=== PATIENT | female | born 1950 | race Two or more races ===

== ENCOUNTER 2023-08-03 13:19 | Inpatient (IN) | payer BC, MEDICAID ==
[~2023-08-03] VITALS: Ht 157.5 cm; Wt 73.0 kg
[2023-08-03 14:39] LABS: Basophils # (auto) 0 10 ^3/uL (0-0.2); Basophils % (auto) 0.3 % (0.0-2.0); Eosinophils # (auto) 0 10 ^3/uL (0-0.8); Eosinophils % (auto) 0.2 % (0.0-7.0); Hematocrit 44.5 % (36.0-46.0); Hemoglobin 14.6 g/dL (12.2-16.2); Lymphocytes # (auto) 2.6 10 ^3/uL (0.4-5.4); Lymphocytes % (auto) 32.7 % (10.0-50.0); Mean Corpuscular Hemoglobin 27.7 pg (28.0-32.0); Mean Corpuscular Hgb Conc. 32.9 g/dL (32.0-36.0); Mean Corpuscular Volume 84.1 fL (80.0-100.0); Monocytes # (auto) 0.7 10 ^3/uL (0-1.3); Monocytes % (auto) 8.6 % (0.0-12.0); Neutrophils # (auto) 4.6 10 ^3/uL (1.6-8.6); Neutrophils % (auto) 58.2 % (37.0-80.0); Red Blood Cells 5.29 10^6/uL (4.0-5.20); Red Cell Distribution Width 15.2 % (11.8-14.3); White Blood Cell 7.9 10^3/uL (4.4-10.8)
[2023-08-03 14:51] LABS: Chloride 107 mmol/L (98-107); Potassium 3.5 mmol/L (3.5-5.1); Sodium 139 mmol/L (136-145)
[2023-08-03 14:52] LABS: Anion Gap 5 (5-15); Calcium 9.4 mg/dL (8.5-10.1); Carbon Dioxide 27 mmol/L (20-30)
[2023-08-03 14:57] LABS: Blood Urea Nitrogen 10 mg/dL (9-23); Glucose 144 mg/dL (74-106)
[2023-08-03 17:34] LABS: Magnesium 1.6 mg/dL (1.6-2.6)
[2023-08-03] MEDS: METOPROLOL SUCCINATE XL 50 MG TAB PO ONE (18:31)
[2023-08-03] MEDS ORDERED: ONDANSETRON HCL 4 MG/2 ML VIAL IV PRN (21:15)
[2023-08-03] MEDS: ATORVASTATIN 20 MG TAB PO SCH (22:00)
[2023-08-03] MEDS ORDERED: MORPHINE SULFATE INJ 2 MG/ml SYRG IV PRN (23:00)
[2023-08-03 23:15] VITALS: PULSE 82; RESP 18; O2SAT 96
[2023-08-03] MEDS: hydrALAZINE HCL 20 MG/ML VL IV PRN (23:45)
[2023-08-04] VITALS (9 sets, daily range): BP systolic 118–165; BP diastolic 54–91; PULSE 67–83; RESP 16–19; TEMP 98–98.7; O2SAT 95–98
[2023-08-04] MEDS: NITROGLYCERIN 0.4 MG SL TAB SL PRN (00:26)
[2023-08-04] MEDS ORDERED: CLOP75TA28 PO (02:09)
[2023-08-04] MEDS ORDERED: OXYB5SOL PO (02:19)
[2023-08-04] MEDS ORDERED: NITR0.4D5 TD (02:19)
[2023-08-04 06:09] LABS: Chloride 107 mmol/L (98-107); Potassium 3.4 mmol/L (3.5-5.1); Sodium 143 mmol/L (136-145)
[2023-08-04 06:10] LABS: Anion Gap 12 (5-15); Carbon Dioxide 24 mmol/L (20-30)
[2023-08-04 06:11] LABS: Calcium 9.2 mg/dL (8.7-10.4)
[2023-08-04 06:15] LABS: Blood Urea Nitrogen 6 mg/dL (9-23); Glucose 111 mg/dL (74-106)
[2023-08-04] MEDS: CLOPIDOGREL BISULFATE 75 MG TAB PO SCH (08:42)
[2023-08-04] MEDS: ASPirin 81 mg TAB PO SCH (08:42)
[2023-08-04] MEDS: ENOXAPARIN SOD 40 MG/0.4 ML SYRINGE SC SCH (08:42)
[2023-08-04] MEDS: METOPROLOL SUCCINATE XL 50 MG TAB PO SCH (08:43)
[2023-08-04] MEDS ORDERED: OXYB5TAB14 PO (11:38)
[2023-08-04] MEDS ORDERED: CLON0.1D7 TD (11:38)
[2023-08-04] MEDS ORDERED: LOSA-533 PO (11:38)
[2023-08-04] MEDS ORDERED: ROSU20TA14 PO (11:38)
[2023-08-04] MEDS ORDERED: DILT60TA PO (11:38)
[2023-08-04 19:59] LABS: Urine Amorphous Crystal FEW /hpf (None Seen); Urine Bacteria FEW /hpf (None Seen); Urine Blood Negative /uL (Negative); Urine Clarity Turbid (Clear); Urine Color Colorless (Yellow); Urine Mucus FEW (None Seen); Urine Protein, UAD Negative (Negative); Urine Specific Gravity 1.015 (1.001-1.035); Urine Urobilinogen Normal (Negative); Urine WBC 123 /hpf (0 - 5); Urine WBC Clumps PRESENT /hpf (None Seen)
[2023-08-04] MEDS: cloNIDine HCL 0.1 MG TAB PO PRN (23:08)
[2023-08-05 01:08] VITALS: BP 128/75; PULSE 78; RESP 18; TEMP 98.2; O2SAT 98
[2023-08-05 05:00] VITALS: BP 133/81; PULSE 67; RESP 18; TEMP 98.1; O2SAT 97
[2023-08-05 08:00] VITALS: PULSE 62
[2023-08-05] MEDS: ACETAMINOPHEN 325 MG TAB PO PRN (09:42)
[2023-08-05] MEDS ORDERED: CIPR-173 PO (11:51)
== END 2023-08-05 14:05 | disposition home or self-care (01) | DRG 554 ==
LOC: ER 13:19 → EDBD 13:19 → TELE 22:55 → TELE-WESTW 08-04 00:51
PROVIDERS: ADMIT Nurse Practitioner; ATTEND Family Medicine
DX: M19.011 Primary osteoarthritis, right shoulder (principal); N39.0 Urinary tract infection, site not specified; I16.0 Hypertensive urgency; I25.10 Atherosclerotic heart disease of native coronary artery without angina pectoris; E66.9 Obesity, unspecified; I10 Essential (primary) hypertension; I95.9 Hypotension, unspecified; E78.00 Pure hypercholesterolemia, unspecified; Z95.1 Presence of aortocoronary bypass graft; Z95.5 Presence of coronary angioplasty implant and graft; Z90.49 Acquired absence of other specified parts of digestive tract; Z90.710 Acquired absence of both cervix and uterus; Z68.29 Body mass index [BMI] 29.0-29.9, adult
CPT/HCPCS: 36415; 71045; 73030; 73070; 73120; 80048; 80061; 81001; 83036; 83735; 84443; 84484; 85025; 87086; 87088; 87186; 93005; 93306; 93971; 96374; G0378